=== PATIENT | male | born 1985 | race Caucasian/White ===

== ENCOUNTER 2024-12-19 13:47 | Emergency (ER) | payer BC, SELFPAY ==
[2024-12-19] VITALS (10 sets, daily range): BP systolic 110–127; BP diastolic 77–93; PULSE 55–70; RESP 14–17; TEMP 36.6; O2SAT 98–100
--- NOTE | ~2024-12-19 | CT_ITS ---
CT brain wo con Ordering provider: Ravinder Arteaga History: 39 years Male with . trauma . Comparison: None. Technique: CT of the head without contrast. Radiation reduction technique utilized.The dose-length pr oduct was 605.33 mGy-cm. FINDINGS: BRAIN PARENCHYMA AND CSF SPACES: No midline shift, mass effect or hemorrhage. The brain parenchyma a nd CSF spaces are otherwise normal. VISUALIZED PARANASAL SINUSES: Well aerated. MASTOIDS: Well aerated. BONES: The bones appear intact. SOFT TISSUES: Visualized nasopharynx is normal. Superficial soft tissues are normal. IMPRESSION: No acute intracranial findings. Reviewed, dictated and finalized at location A.
--- NOTE | 2024-12-19 13:58 | ECG_ITS ---
Test Date: 2024-12-19 14:33:17 Measurements Intervals [place] Rate: 60 P: 23 [place]: 176 QRS: 5 QRSD: 102 T: 171 QT: 408 QTc: 409 Interpretive Statements SINUS RHYTHM POSSIBLE RIGHT VENTRICULAR CONDUCTION DELAY [RSR (QR) IN V1/V2] SEPTAL MYOCARDIAL INFARCTION [40+ ms Q WAVE IN V1/V2], OF INDETERMINATE AGE MODERATE T-WAVE ABNORMALITY, CONSIDER LATERAL ISCHEMIA [-0.1+ mV T WAVE IN I/aVL/V5/V6] No previous ECG available for comparison Electronically Signed On 12-20-2024 18:59:38 CDT by Vlad Lyman
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
[2024-12-19 15:25] LABS: Add Urine Microscopic? NO; Appearance Urine Clear (Clear); Bilirubin Urine Negative (Negative); Blood Urine Negative (Negative); Color Urine Yellow (Yellow); Glucose Urine UA Negative (Negative); Ketones Urine Trace mg/dL (Negative); Leukocyte Esterase Ur Negative LEU/UL (Negative); Nitrate Urine Negative (Negative); Protein Urine Negative (Negative); Specific Grav Ur 1.023 (1.001-1.035); Urobilinogen Urine 0.2 mg/dL (<2.0); pH Urine 5.5 (5.0-9.0)
[2024-12-19 15:26] LABS: Basophils Percent Auto 0.6 % (0.2-1.2); Eosinophils Absolute Auto 0.1 K/mm3 (0-0.3); Eosinophils Percent Auto 1.8 % (0-4.4); Hematocrit 39.1 % (42.0-52.0); Hemoglobin 13.3 g/dL (14.0-18.0); Immature Granulocyte Absolute 0.02 K/mm3 (0.00-0.031); Immature Granulocyte Percent A 0.3 % (0-0.5); Lymphocytes Percent Auto 17.9 % (18.3-44.2); Mean Corpuscular Volume 88.1 fl (80-100); Mean Platelet Volume 9.7 fl (7.4-10.4); Monocytes Absolute Auto 0.4 K/mm3 (0.1-0.6); Monocytes Percent Auto 5.8 % (2.6-8.5); Neutrophils Absolute Auto 5.4 K/mm3 (1.3-6.7); Neutrophils Percent Auto 73.6 % (45.5-73.1); Platelet Count Result 185 k/mm3 (150-375); Red Blood Count 4.44 M/mm3 (4.6-6.20); Red Cell Distribution Width 12.6 % (11.5-14.5); White Blood Count 7.3 K/mm3 (4.5-10.0)
--- OUTSIDE RECORDS SUMMARY | 2024-12-19 15:27 | XMS_ITS | Referral Summary ---
Author Organization [facility] Address [address] [place] [address] Care Team Providers Care Intelligence Chief Name Role Phone Denilson Quick Primary Care Provider [phone] Allergies No known active allergies Medications acetaminophen 500 mg capsule Take 2 capsules (1,000 mg total) by mouth every 6 (six) hours as needed for pain 12/10/2023 Active levETIRAcetam (KEPPRA) 500 mg tablet Take 1 tablet (500 mg total) by mouth 2 (two) times a day for 7 days 14 tablet 12/10/2023 Active senna-docusate (PERICOLACE) 8.6-50 mg Take 1 tablet by mouth daily 60 tablet 12/10/2023 Active oxyCODONE (ROXICODONE) 10 mg tabletIndicatio ns:Pain Take 1 tablet (10 mg total) by mouth every 3 (three) hours as needed for pain 28 tablet 12/10/2023 Active Active Problems Problem Noted Date Diagnosed Date Subdural hemorrhage 12/09/2023 Social History Tobacco Use Types Packs/Day Years Used Date Smoking Tobacco: Never Passive Smoke Exposure: Never Smokeless Tobacco: Never Tobacco Cessation:Counseling Given: No Personal Safety Answer Date Recorded Have you ever been in or are you currently in a harmful physical or emotional relationship or is someone making you feel afraid or unsafe? 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 Gender Identity Not on file Sexual Orientation Not on file Last Filed Vital Signs Vital Sign Reading Time Taken Comments Blood Pressure 136/95 12/11/2023 7:58 AM CDT Pulse 56 12/11/2023 4:03 AM CDT Temperature 36.5 C (97.7 F) 12/11/2023 7:58 AM CDT Respiratory Rate 16 12/11/2023 7:58 AM CDT Oxygen Saturation 100% 12/11/2023 7:58 AM CDT Inhaled Oxygen Concentration - - Weight 68 kg (150 lb) 12/09/2023 7:00 PM CDT Height 177.8 cm (5' 10 ) 12/09/2023 7:00 PM CDT Body Mass Index 21.52 12/09/2023 7:00 PM CDT Plan of Treatment Not on file Insurance [employer] GENERIC Advance Directives For more information, please contact: [phone] * Full Code (Latest Code Status on File) Date Activated Date Inactivated Comments 12/09/2023 7:10 PM 12/11/2023 3:54 PM Care Teams Intelligence Chief Relationship Specialty [place] [address] [place] [address] PCP - General Deliverer Food 12/10/24
--- OUTSIDE RECORDS SUMMARY | 2024-12-19 15:27 | XMS_ITS | Clinical Summary ---
Author Organization [facility] Address [address] [place] [address] Care Team Providers Care Reclamation Supervisor Name Role Phone Unavailable Primary Care Provider Unavailabl e Source Comments [facility],non-owned Affiliates and Associated Physician Practices is amultiple site organization consisting of ambulatory clinics and hospital sitesin [place], [place], [place] and [place]. This disclosure is being madepursuant to the Care Everywhere program and may not contain all information available regarding this patient. Last updated 18.[facility] Allergies Active Allergy Reactions Criticality Noted Date Comments Bee Pollen Eye Itching 06/14/2023 Medications * This document contains information received from the source organization and may not represent a complete record from that organization. * Be aware that medications may not be up to date on this document. Alwaysverify current medications with the patient. Multiple Vitamins-Minera ls (MULTIVITAMIN ADULT PO) Take 1 tablet by mouth once daily Active cetirizine (ZYRTEC) 10 MG tablet Take 10 mg by mouth once daily as needed for Allergies Active metFORMIN (Glucophage) 500 MG tablet Take 1 (one) tablet by mouth 2 times daily with morning and evening meal 4 Active Active Problems Problem Noted Date Diagnosed Date Need for vaccination for measles 08/21/2023 Type 2 diabetes mellitus wit hout complication, without long-term current use of insulin 02/06/2023 Reaction to QuantiFERON-TB test 02/06/2023 Subdural hematoma 11/19/2022 Overview (07/12/2024): fall Need for vaccination against hepatitis A 022 High cholesterol 08/21/2019 Annual physical exam- [facility] Departdc nt 07/17/2018 Exposure to environmental toxic substances 08/21 Overview (09/16/2019): [employer] Seasonal allergies Family history of diabetes mellitus Resolved Problems Problem Noted Date Diagnosed Date Resolved Date Chest pain 10/26/2020 01/29/2021 Elevated troponin 10/26/2020 06/14/2023 Family history of type 2 diabetes mellitus 02/05/2009 01/29/2021 Immunizations Immunization Administration Dates Next Due [address] [employer] primary monoval ent 12+ yr 0.3mL Purple cap 10/03/2020,09/12/2020 HEP A VACCINE, ADULT 04/01/2022,01/29/2021 INFLUENZA VACCINE, QUADR. (F LUZONE; FLULAVAL; FLUARIX; AFLURIA QUADRIVALENT; 6MO+), 0.5 ML (IIV4) 08/18/2022,07/03/2019,06/21/2018,2015 MMR 07/12/2024 TDAP (7yrs+) 07/12/2024 Family History Medical History Relation Name Comments CAD (Coronary Artery Disease) Father Diabetes - Type 2 Father borderline CVA Mother hemorrhagic Diabetes Mother type 2 Heart Failure Mother CHF - heart tr ansplant Diabetes Sister 1 type 1 Multiple Sclerosis Sister 1 Other Sister 1 brain bleed Diabetes Sister 2 type 2 Relation Name Status Comments Father Alive Mother Sister 1 Alive Sister 2 Alive Social History Tobacco Use Types Packs/Day Years Used Date Smoking Tobacco: Never Cigars Smokeless Tobacco: Never Tobacco Cessation:Counseling Given: Yes Alcohol Use Standard Drinks/Week Comments Yes 0.8 (1 standard drink = 0.6 oz p ure alcohol) 1 x week PHQ-2 Answer Date Recorded Patient Health Questionnaire-2 Score 0 07/05/2024 Sex and Gender Information Value Date Recorded Sex Assigned at Not on file 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 Gender Identity Not on file Sexual Orientation Not on file 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 Last Filed Vital Signs Vital Sign Reading Time Taken Comments Blood Pressure 124/76 07/12/2024 9:00 AM SQUARING MACHINE OPERATOR Pulse 63 07/12/2024 9:00 AM SQUARING MACHINE OPERATOR Temperature 36.3 C (97.4 F) 10/27/2020 12:36 PM SQUARING MACHINE OPERATOR Respiratory Rate 14 07/12/2024 9:0 0 AM SQUARING MACHINE OPERATOR Oxygen Saturation 99% 07/12/2024 9:00 AM SQUARING MACHINE OPERATOR Inhaled Oxygen Concentration - - Weight 61.1 kg (134 lb 12.8 oz) 07/12/2024 9:00 AM SQUARING MACHINE OPERATOR Height 174 cm (5' 8.5 ) 07/12/2024 9:00 AM SQUARING MACHINE OPERATOR Body Mass Index 20.2 07/12/2024 9:00 AM SQUARING MACHINE OPERATOR Plan of Treatment Health Maintenance Due Date Last Done Comments HEPATITIS C SCREENING 06/07/2002 HEPATITIS B VACCINE (1 of 3 - 19+ 3-dose series) 2003 PNEUMOCOCCAL VACCINE (1 of 2 - PCV) 2003 DIABETES RETINOPATHY SCREENING 02/06/2023 DIABETES-FOOT EXAM WITH MONOFILAMENT 02/06/2023 COVID-19 VACCINE ( - season) 2024 10/03/2020, 09/12/2020 DIABETES-STATIN 2024 DEPRESSION SCREENING 08/21/2024 07/12/2024, 06/14/20 DIABETES - URINE PROTEIN SCREENING 08/21/2024 DIABETES-HGB A1C 12/13/2024 06/14/2024, , 06/14/2023, Additional history exists INFLUENZA VACCINE (Season Ended) 2025 07/10/2023, 08/18/2022, 07/03/2019, Additional history exists DIABETES-SERUM CREATININE 06/14/20252023, 12/09/2023, 12/09/2023, Additional history exists ZOSTER VACCINE (1 of 2) 2034 DTAP/TDAP/TD VACCINES (2 - Td or Tdap) 07/12/2034 07/12/2024 HIV SCREENING Completed 02/05/2009 HEPATITIS A VACCINE Completed 04/01/2022, HIB VACCINE Aged Out No longer eligi ble based on patient's age to complete this topic HPV VACCINE Aged Out No longer eligi ble based on patient's age to complete this topic MENINGOCOCCAL (Group B) VACCINE SHARED DECISION-MAKING Aged Out No longer eligible based on patient's age to complete this topic MENINGOCOCCAL GROUPS A/C/Y/W VACCINE Aged Out No longer eligible based on patient's age to complete this topic Procedures Procedure Name Priority Date/Time Associated Diagnosis Comments COMPREHENSIVE METABOLIC PANEL Routine 06/14/2024 7:05 AM CDT Annual physical exam- [facility] HEMOGLOBIN A1C Routine 06/14/2024 7:05 AM CDT HIV 1/0/2 ANTIBODIES W CONFIRM Routine 02/05/2009 11:00 AM CDT Annual Physical Exam Screening for HIV (Human Immunodeficiency Virus) from Last 3 Months or Most Recently Relevant to Health Maintenance Results * (ABNORMAL) HEMOGLOBIN A1C (06/14/2024 7:05 AM CDT) Hemoglobin A1c 6.9(H) 4.8 - 5.6 % [facility] ACCOUNT BILL Comment: Prediabetes: 5.7 - 6.4 Diabetes: >6.4 Glycemic control for adults with diabetes: <7.0 06/14/2024 7:05 AM CDT 06/14/2024 Narrative [facility] ACCOUNT BILL - 06/15/2024 9:11 AM CDT Performed at: - Lab[address] [id number] Sample Selector: Kang Molina PhD, Phone: [phone] us Laurie Dangelo MD LAB - CHEMISTRY ORDERABLES Pretty maldonado Result [facility] ACCOUNT BILL [address] [place] [address] * (ABNORMAL) COMPREHENSIVE METABOLIC PANEL (06/14/2024 7:05 AM CDT) Glucose 122(H) 70 - 99 mg/dL [facility] ACCOUNT BILL BUN 22 6 - 24 mg/dL [facility] ACCOUNT BILL Creatinine 0.91 0.76 - 1.27 mg/dL [facility] ACCOUNT BILL eGFR by CKD-EPI 109 >59 mL/min/1.7 3 [facility] ACCOUNT BILL BUN/Creatinine Ratio 24(H) 9 - 20 [facility] ACCOUNT BILL Sodium 140 134 - 144 mmol/L [facility] ACCOUNT BILL Potassium 4.6 3.5 - 5.2 mmol/L [facility] ACCOUNT BILL Chloride 103 96 - 106 mmol/L [facility] ACCOUNT BILL CO2 25 20 - 29 mmol/L [facility] ACCOUNT BILL Calcium 9.1 8.7 - 10.2 mg/dL [facility] ACCOUNT BILL Protein Total 6.9 6.0 - 8.5 g/dL [facility] ACCOUNT BILL Albumin 4.4 4.1 - 5.1 g/dL [facility] ACCOUNT BILL Globulin Total 2.5 1.5 - 4.5 g/dL [facility] ACCOUNT BILL Bilirubin Total 0.2 0.0 - 1.2 mg/dL [facility] ACCOUNT BILL Alkaline Phosphatase 83 44 - 121 IU/L [facility] ACCOUNT BILL AST 23 0 - 40 IU/L [facility] ACCOUNT BILL ALT 22 0 - 44 IU/L [facility] ACCOUNT BILL Blood BLOOD SPECIMEN / Unknown 06/14/2024 7:05 AM CDT 06/14/2024 Narrative [facility] ACCOUNT BILL - 06/15/2024 9:11 AM CDT Performed at: [address] [id number] Sample Selector: Kang Molina PhD, Phone: [phone] us Laurie Dangelo MD LAB - CHEMISTRY ORDERABLES Pretty maldonado Result [facility] ACCOUNT BILL [address] [place] [address] * HIV 1/0/2 ANTIBODIES W CONFIRM (PO REF LAB) (02/05/2009 11:00 AM CDT) HIV-1 Antibody O.D. Ratio <1.00 <1.00 [facility] ACCOUNT BILL Comment:Index Value: Specime n reactivity relative to the negative cutoff. HIV-1/HIV-2 Non Reactive Non Reactive [facility] ACCOUNT BILL BLOOD SPECIMEN / Unknown 02/05/2009 11:00 AM CDT 02/05/2009 6:03 PM CDT Narrative Resulting Agency Comment [facility] [address] [facility] [phone] us Tiffany Skinner MD LAB - MICROBIOLOGY ORDERABLES F inal Result [facility] ACCOUNT BILL [address] [place] [address] from Last 3 Months or Most Recently Relevant to Health Maintenance Insurance [facility] [place], [place] [address] PA[facility]OR GENERIC CCMSI Advance Directives * Full Code (Latest Code Status on File) Date Activated Date Inactivated Comments 10/26/2020 8:42 PM 10/27/2020 6:00 PM * FULL RESUSCITATION Date Activated Date Inactivated Comments 07/19/2013 2:33 AM 07/21/2013 3:19 PM
--- OUTSIDE RECORDS SUMMARY | 2024-12-19 15:27 | XMS_ITS | Clinical Summary ---
Author Organization [facility] Address [facility] [place] [address] Care Team Providers Care Salesperson Flying Squad Name Role Phone Denilson Quick Primary Care Provider [phone] Allergies Active Allergy Reactions Criticality Noted Date Comments Bee Pollen Eyes Water & Itch 06/14/2023 Medications multi vitamin/minerals (VITAMINS/MINERA LS) tablet Take 1 tablet by mouth daily. Active cetirizine 10 MG tablet Take 1 tablet (10 mg total) by mouth daily. Active Glucose Blood (BLOOD GLUCOSE TEST STRIPS) StripIndications :Type 2 diabetes mellitus without complication, without long-term current use of insulin ([facility]/HCC HHS/HCC) 1 each by Does not apply route 4 (four) times daily as needed. 100 strip 3 07/10/2023 Active Blood Glucose Monitoring Suppl (ONE TOUCH ULTRA 2) w/Device KitIndications:T ype 2 diabetes mellitus without complication, without long-term current use of insulin (CMS/HCC HHS/HCC) 1 Device by Does not apply route 4 (four) times daily as needed. 1 kit 07/10/2023 Active Lancets MiscIndications: Type 2 diabetes mellitus without complication, without long-term current use of insulin (CMS/HCC HHS/HCC) 1 each by Does not apply route 4 (four) times daily as needed. 100 each 3 07/10/2023 Active metFORMIN (GLUCOPHAGE) 500 MG tabletIndication s:Type 2 diabetes mellitus without complication, without long-term current use of insulin (CMS/HCC HHS/HCC) Take 1 tablet (500 mg total) by mouth 2 (two) times daily with meals. 60 tablet 11 05/09/2024 Active Active Problems Problem Noted Date Diagnosed Date Traumatic brain injury 12/27/2023 Family history of diabetes mellitus 10/03/2023 Type 2 diabetes mellitus wit hout complication, without long-term current use of insulin ([facility]) 02/06/2023 Reaction to QuantiFERON-TB test 02/06/2023 Seasonal allergies 03/20/2019 Family history of type 2 diabetes mellitus 02/05 Resolved Problems Problem Noted Date Diagnosed Date Resolved Date Pain at surgical incision 07/03/2019 Assessment & Plan (07/03/2019 8:09 AM JET INSPECTOR): Will get US to look for incisional hernia. Ok to con't with work in meantime Rib pain on right side 06/25/201907/10 Assessment & Plan (06/25/2019 1:02 PM JET INSPECTOR): Will get X rays of ribs. Con't ibuprofen PRN. Note given to go back to work after reeval in 1 week Gastroesophageal reflux dise ase, esophagitis presence not specified 06/25/2019 07/10/2023 Assessment & Plan (06/25/2019 1:03 PM JET INSPECTOR): Some of his pain consistent with acid reflux. Will try PPI to see if helps mariana with NSAID SOB (shortness of breath) 03/20/2019 Assessment & Plan (03/20/2019 2:42 PM CDT): Had treadmill test and could do significant mets w/o ECG changes. Will get PFTs to evaluate SOB and chest tightness Encounters Date Type Department Care Team Description 10/09/2024 10:00 AM JET INSPECTOR Office Visit [facility] Family & Internal Medicine [address] [address] Denilson Quick PA Follow Up (3 month follow up); Diabetes 10/09/2024 Travel from Last 3 Months Immunizations Immunization Administration Dates Next Due Fluzone 6 Months+ Quad (0.5 mL Prefilled Syringe) 07/10/2023 Hepatitis A (Havrix [address]) 04/01/2022,2020 Influenza (Generic) 06/26/2024 Influenza Adult (Generic) 08/18/2022,,06/21/2018,2015 MMR (MMRII) 07/12/2024 Tdap (Adacel) 07/10/2023 Tdap (Generic) 07/12/2024 Family History Medical History Relation Comments Cancer Father prostate Depression Father Diabetes Mother Heart Disease Mother Diabetes Sister Relation Status Comments Father Mother Sister Social History Tobacco Use Types Packs/Day Years Used Date Smoking Tobacco: Never Smokeless Tobacco: Never Tobacco Cessation:Counseling Given: No Alcohol Use Standard Drinks/Week Comments Yes 1 (1 standard drink = 0.6 oz pur e alcohol) social PHQ-2 Answer Date Recorded Patient Health Questionnaire-2 Score 0 10/09/2024 [facility] - Occupational Stress Questionnaire Answer Date Recorded Feeling of Stress Only a little 03/20/2019 Sex and Gender Information Value Date Recorded Sex Assigned at Not on file Legal Sex Male 7:32 AM CDT Gender Identity Not on file Sexual Orientation Not on file 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 Not on file Not on file Last Filed Vital Signs Vital Sign Reading Time Taken Comments Blood Pressure 137/86 10/09/2024 10:07 AM JET INSPECTOR Pulse 72 10/09/2024 10:07 AM JET INSPECTOR Temperature 36.7 C (98.1 F) 10/09/2024 10:07 AM JET INSPECTOR Respiratory Rate 16 10/09/2024 10:07 AM JET INSPECTOR Oxygen Saturation 99% 10/09/2024 10:07 AM JET INSPECTOR Inhaled Oxygen Concentration - - Weight 63.5 kg (140 lb) 10/09/2024 10:07 AM JET INSPECTOR Height 175.3 cm (5' 9 ) 10/09/2024 10:07 AM JET INSPECTOR Body Mass Index 20.67 10/09/2024 10:07 AM JET INSPECTOR Plan of Treatment Upcoming Encounters Date Type Department Care Team (Late st Contact Info) Description 01/06/2025 9:00 AM CDT Office Visit [facility] Family & Internal Medicine [address] [address] [place] [address] [place] [address] Health Maintenance Due Date Last Done Comments Kidney Health Evaluation 1984 Diabetes: Retinopathy Eye Exam 2002 Hepatitis B Vaccines (1 of 3 - 19+ 3-dose series) 2003 Pneumococcal Vaccine: Pediatrics (0 to 5 Years) and At-Risk Patients (6 to 49 Years) (1 of 2 - PCV) 2003 COVID-19 Vaccine (3 - 2023- season) 2024 10/03/2020, 09/12/2020 Annual Physical 07/10/2024 07/10/2023 Hemoglobin A1C 04/08/2025 10/09/2024, 05/22, 10/03/2023, Additional history exists Lipid Panel 06/14/2025 06/14/2024, 03/0 04/2021, 08/20/2019 DTaP, Tdap and Td Vaccines (3 - Td or Tdap) 07/12/2034 07/12/2024, 07/10/2023 Hepatitis C 07/10/2053 Postponed from 2002 (Patient Refused) PHQ-2 (Physician Rincon) Completed 10/09/2024 HPV Vaccines Aged Out No longer eligi ble based on patient's age to complete this topic Meningococcal B Vaccine Aged Out No l onger eligible based on patient's age to complete this topic Meningococcal Vaccine Aged Out No jhonathan jay eligible based on patient's age to complete this topic RSV Immunizations Under 20 Months Aged Out No longer eligible based on patient's age to complete this topic Procedures Procedure Name Priority Date/Time Associated Diagnosis Comments COLLECT.CAPILLARY (FNGR,HEEL,EAR) Routine 10/09/2024 10:08 AM JET INSPECTOR Type 2 diabetes mellitus without complication, without long-term current use of insulin ([facility]) HEMOGLOBIN, GLYCOSYLATED Routine 10/09/2024 Type 2 diabetes mellitus without complication, without long-term current use of insulin ([facility]) from Last 3 Months Results * A1C (BACK OFFICE) (10/09/2024) HGB A1C 6.7 % [id number] T HORTENCIAOMAR PANDYA 10/09/2024 [facility] Final Result Performing Organization Address City/State/[facility] Co de Phone Number [phone] [place] [address], [place] [phone] from Last 3 Months Insurance [employer] [address] [place], [place] [id number] [place] [address] Care Teams Salesperson Flying Squad Relationship Specialty [place] [address] [place] [address] PCP - General Physician Jigger Operator Medical 10/03/23
--- OUTSIDE RECORDS SUMMARY | 2024-12-19 15:27 | XMS_ITS | Encounter Summary ---
Author Organization [facility] Address [address] [place] [address] Care Team Providers Care Hand Bindery Assembly Worker Name Role Phone Amelia Bai MD Primary Care Provider [phone] Amelia Bai MD Primary Care Provider [phone] Kiarra Guidry MD Primary Care Provider Encounter Details Date Type Department Care Team (Late st Contact Info) Description 11/30/2015 Lab Requisition [facility] [address] [place] [address] Unknown, Provider Social History Tobacco Use Types Packs/Day Years Used Date Smoking Tobacco: Never Cigars Comments:every once in awhil e Alcohol Use Standard Drinks/Week Comments Yes 0.8 (1 standard drink = 0.6 oz p ure alcohol) 1 x week Sex and Gender Information Value Date Recorded Sex Assigned at Not on file Legal Sex Male 6:11 AM EMG TECHNICIAN Gender Identity Not on file Sexual Orientation Not on file 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 as of this encounter Plan of Treatment Not on file documented as of this encounter Procedures Procedure Name Priority Date/Time Associated Diagnosis Comments RUBEOLA ANTIBODY IGG Routine 11/30/2015 9:45 AM CDT MUMPS ANTIBODY IGG Routine 11/30/2015 9: 45 AM CDT VARICELLA ZOSTER ANTIBODY IGG Routine 11/30/2015 9:45 AM CDT RUBELLA ANTIBODY IGG Routine 11/30/2015 9:45 AM CDT HEPATITIS B SURFACE ANTIBODY Routine 11/30/2015 9:45 AM CDT documented in this encounter Results * VARICELLA ZOSTER ANTIBODY IGG (11/30/2015 9:45 AM CDT) Varicella zoster Virus Antibody IgG 790 Immune >165 index 12/02/2015 12:15 PM CDT [facility] ([facility]) Comment: Negative <135 Equivocal 135 - 165 Positive >165 A positive result generally indicates exposure to the pathogen or administration of specific immunoglobulins, but it is not indication of active infection or stage of disease. Blood specimen (specimen) BLOOD SPECIMEN / Unknown Venipuncture / Unknown 11/30/2015 9:45 AM CDT 11/30/2015 7:36 PM CDT Narrative [facility] ([facility]) - 12/02/2015 12:15 PM CDT Performed at: - [facility] [address] [place] [address] [id number] Underwater Welder: Kang Molina PhD, Phone: [phone] us Provider Unknown LAB - CHEMISTRY ORDERABLES Pretty l Result [facility] ([facility]) [address] [place] [address] * (ABNORMAL) RUBEOLA ANTIBODY IGG (11/30/2015 9:45 AM CDT) Pathologist [facility] Measles (Rubeola) Antibody IgG <25.0(L) Immune >29.9 AU/mL 12/02/2015 12:15 PM CDT [facility] ([facility]) Comment: Negative <25.0 Equivocal 25.0 - 29.9 Positive >29.9 Presence of antibodies to Rubeola is presumptive evidence of immunity except when acute infection is suspected. Blood specimen (specimen) BLOOD SPECIMEN / Unknown Venipuncture / Unknown 11/30/2015 9:45 AM CDT 11/30/2015 7:36 PM CDT [facility] - 12/02/2015 12:15 PM CDT Performed at: [address] [place] [address] [id number] Underwater Welder: Kang Molina PhD, Phone: [phone] Provider Unknown LAB - CHEMISTRY ORDERABLES Pretty l Result Performing Organization Address [facility] Co de Phone Number [facility] ([facility]) [address] [place] [address] * MUMPS ANTIBODY IGG (11/30/2015 9:45 AM CDT) Mumps Virus Antibody IgG Index 20.5 Immune >10.9 AU/mL 12/02/2015 12:15 PM [facility] Comment: Negative <9.0 Equivocal 9.0 - 10.9 Positive >10.9 A positive result generally indicates past exposure to Mumps virus or previous vaccination. Blood specimen (specimen) BLOOD SPECIMEN / Unknown Venipuncture / Unknown 11/30/2015 9:45 AM CDT 11/30/2015 7:36 PM CDT [facility]ative [facility] - 12/02/2015 12:15 PM CDT Performed at: [address] [place] [id number] Underwater Welder: Kang Molina PhD, Phone: [phone] Provider Unknown LAB - CHEMISTRY ORDERABLES Pretty l Result Performing Organization Address [facility] Co de Phone Number [facility]) [address] [place] [address] * RUBELLA ANTIBODY IGG (11/30/2015 9:45 AM CDT) Rubella Antibody IgG Positive - Immune 11/30/2015 8:33 PM CDT [facility] Blood BLOOD SPECIMEN / Unknown Venipuncture / Unknown 11/30/2015 9:45 AM CDT 11/30/2015 7:36 PM CDT us Provider Unknown LAB - SEROLOGY ORDERABLES Final Result Performing Organization Address City/[facility]/ZIP Co de Phone Number [facility] [address] [place] [address] * (ABNORMAL) HEPATITIS B SURFACE ANTIBODY (11/30/2015 9:45 AM CDT) HBsAb REACTIVE(A ) Non Reactive 11/30/2015 8:23 PM CDT [facility] Blood BLOOD SPECIMEN / Unknown Venipuncture / Unknown 11/30/2015 9:45 AM CDT 11/30/2015 7:36 PM CDT Provider Unknown LAB - CHEMISTRY ORDERABLES Pretty l Result Performing Organization Address [facility] Co de Phone Number [facility] [address] [place] [address] documented in this encounter Visit Diagnoses Not on filedocumented in this encounter Additional Health Concerns Infection Onset Date Last Indicated Resolved Time COVID-19 Under Investigation 05/19/2020 05/19/2020 05/20/2020 2:39 PM CDT COVID-19 Under Investigation 07/15/2020 07/15/2020 07/16/2020 8:29 AM EMG TECHNICIAN COVID-19 Confirmed 07/15/2020 07/15/2020 0 4:34 AM EMG TECHNICIAN documented as of this encounter Care Teams Hand Bindery Assembly Worker Relationship Specialty Start Date End Date Amelia Bai MD PCP - General Internal Medicine 09/16/19 01/28/21 [place] [address] [place] [address] PCP - General 03/05/21 03/01/22 Kiarra Guidry MD [address] [facility] [address] [id number] PCP - General 10/12/23 07/11/24 documented as of this encounter
--- OUTSIDE RECORDS SUMMARY | 2024-12-19 15:27 | XMS_ITS | Clinical Summary ---
Author Organization [facility] Address [address] [place] [address] Care Team Providers Care Dispute Resolution Specialist Name Role Phone Denilson Quick Primary Care Provider [phone] Allergies No known active allergies Medications acetaminophen [...] on file Legal Sex Male 3:06 AM VENDING MACHINE FILLER Gender Identity Not on file Sexual Orientation Not on file Obstetrics History Last Filed Vital Signs Vital Sign Reading [...] 12/09/2023 7:00 PM CDT Plan of Treatment Health Maintenance Due Date Last Done Comments Depression Screening 1984 Hepatitis C Screening 1984 Varicella Vaccines (1 of 2 - 13+ 2-dose series) 1997 Hepatitis B Screening 2002 Regular Well Visit/Exam 18-64 2002 Covid-19 Vaccine ( - 2023- season) 2024 10/03/2020, 09/12/2020 DTaP/Tdap/Td Vaccine (3 - Td or Tdap) 07/12/2034 07/12/2024, 07/10/2023 Influenza Vaccine Completed 06/26/2024, , 08/18/2022, Additional history exists HPV Vaccines Aged Out No longer eligi ble based on patient's age to complete this topic Pneumococcal vaccine <65 Aged Out No longer eligible based on patient's age to complete this topic Insurance [employer] COMPENSATION GENERIC Advance Directives For more information, please contact: [phone] * Full Code (Latest Code Status on File) Date Activated Date Inactivated Comments 12/09/2023 7:10 PM 12/11/2023 3:54 PM Care Teams Dispute Resolution Specialist Relationship Specialty [place] [address] [place] [address] PCP - General Corrections Caseworker 12/10/24
--- OUTSIDE RECORDS SUMMARY | 2024-12-19 15:27 | XMS_ITS | Encounter Summary ---
Author Organization [facility] Address [address] [place] [address] Care Team Providers Care Senior Operations Manager Name Role Phone Amelia Bai MD Primary Care Provider [phone] Amelia Bai MD Primary Care Provider [phone] Kiarra Guidry MD Primary Care Provider Encounter Details Date Type Department Care Team (Late st Contact Info) Description 05/19/2020 Lab Requisition [facility] [address] [place] [address] Social History Tobacco Use Types Packs/Day Years Used Date Smoking Tobacco: Never Cigars Smokeless Tobacco: Never Alcohol Use Standard Drinks/Week Comments Yes 0.8 (1 standard drink = 0.6 oz p ure alcohol) 1 x week Sex and Gender Information Value Date Recorded Sex Assigned at Not on file Legal Sex Male 6:11 AM BLADE ALIGNER Gender Identity Not on file Sexual Orientation Not on file 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 as of this encounter Plan of Treatment Not on file documented as of this encounter Procedures Procedure Name Priority Date/Time Associated Diagnosis Comments SARS-COV-2 (COVID-19) IN HOUSE Routine 05/19/2020 8:11 AM CDT documented in this encounter Results * SARS-COV-2 (COVID-19) IN HOUSE (05/19/2020 8:11 AM CDT) COVID-19 PCR Not detected Not detected, Invalid 05/20/2020 2:39 PM CDT [facility] Microbiology SPECIMEN FROM NASOPHARYNGEAL STRUCTURE / Unknown Collection / Unknown 05/19/2020 8:11 AM CDT 05/19/2020 12:31 PM CDT Narrative [facility] - 05/20/2020 2:39 PM CDT This Real Time RT-PCR assay was developed and its performance characteristics determined by [facility]. This test has been authorized by the Food and Drug administration (FDA)under an Emergency Use Authorization (EUA). This test has been validated in accordance with the FDA's guidance document Policy for Diagnostic Testing in Laboratories Certified to perform High Complexity Testing under CLIA prior to Emergency Use Authorization for Coronavirus Disease-2019 during the Public Health Emergency issued on October 19, 2019. FDA independent review of this validation is pending. This test is only authorized for the duration of time the declaration that circumstances exist justifying the authorization of emergency use of in vitro diagnostic tests for detection of SARS-CoV-2 virus and/or diagnosis of COVID-19 infection under section 564(b)(1) of the Act, 21 U.S.C 360bbb-3 (b)(1), unless the authorization is terminated or revoked sooner. us LAB - MICROBIOLOGY ORDERABLES Fi nal Result [facility] [address] [place] [address], [facility] [phone] documented in this encounter Visit Diagnoses Not on filedocumented in this encounter Additional Health Concerns Infection Onset Date Last Indicated Resolved Time COVID-19 Under Investigation 05/19/2020 05/19/2020 05/20/2020 2:39 PM CDT COVID-19 Under Investigation 07/15/2020 07/15/2020 07/16/2020 8:29 AM BLADE ALIGNER COVID-19 Confirmed 07/15/2020 07/15/2020 0 4:34 AM BLADE ALIGNER documented as of this encounter Care Teams Senior Operations Manager Relationship Specialty Start Date End Date Amelia Bai MD PCP - General Internal Medicine 09/16/19 01/28/21 [place] [address] [place] [address] PCP - General 03/05/21 03/01/22 Kiarra Guidry MD [address] [place] [address] [address] [address] PCP - General 10/12/23 07/11/24 documented as of this encounter
--- OUTSIDE RECORDS SUMMARY | 2024-12-19 15:27 | XMS_ITS | Encounter Summary ---
Author Organization [facility] Address [address] [place] [address] Care Team Providers Care Project Program Manager Name Role Phone Amelia Bai MD Primary Care Provider [phone] Amelia Bai MD Primary Care Provider [phone] Kiarra Guidry MD Primary Care Provider Encounter Details Date Type Department Care Team (Late st Contact Info) Description 07/15/2020 Lab Requisition [facility] [address] [place] [address] Social History Tobacco Use Types Packs/Day Years Used Date Smoking Tobacco: Never Cigars Smokeless Tobacco: Never Alcohol Use Standard Drinks/Week Comments Yes 0.8 (1 standard drink = 0.6 oz p ure alcohol) 1 x week Sex and Gender Information Value Date Recorded Sex Assigned at Not on file Legal Sex Male 6:11 AM PSYCHIATRIC SECRETARY Gender Identity Not on file Sexual Orientation Not on file 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 as of this encounter Plan of Treatment Not on file documented as of this encounter Procedures Procedure Name Priority Date/Time Associated Diagnosis Comments SARS-COV-2 (COVID-19) IN HOUSE Routine 07/15/2020 1:05 PM PSYCHIATRIC SECRETARY documented in this encounter Results * (ABNORMAL) SARS-COV-2 (COVID-19) IN HOUSE (07/15/2020 1:05 PM PSYCHIATRIC SECRETARY) COVID-19 PCR Detected( AA) Not detected 07/16/2020 8:29 AM PSYCHIATRIC SECRETARY [facility] Microbiology SPECIMEN FROM NASOPHARYNGEAL STRUCTURE / Unknown Collection / Unknown 07/15/2020 1:05 PM PSYCHIATRIC SECRETARY 07/15/2020 5:27 PM PSYCHIATRIC SECRETARY Narrative [facility] - 07/16/2020 8:29 AM PSYCHIATRIC SECRETARY This nucleic acid amplification assay performance was validated by [facility]. This test has been authorized [...] the authorization is terminated or revoked sooner. Fact Sheets for this EUA assay are available upon request. us LAB - MICROBIOLOGY ORDERABLES Fi nal Result [facility] [address] [place] [address], [facility] [phone] documented in this encounter Visit Diagnoses Not on filedocumented in this encounter Additional Health Concerns Infection Onset Date Last Indicated Resolved Time COVID-19 Under Investigation 07/15/2020 07/15/2020 07/16/2020 8:29 AM PSYCHIATRIC SECRETARY COVID-19 Confirmed 07/15/2020 07/15/2020 0 4:34 AM PSYCHIATRIC SECRETARY documented as of this encounter Care Teams Project Program Manager Relationship Specialty Start Date End Date Amelia Bai MD PCP - General Internal Medicine 09/16/19 01/28/21 [place] [address] [place] [address] PCP - General 03/05/21 03/01/22 Kiarra Guidry MD [address] [place] [address] [address] [place] [id number] PCP - General 10/12/23 07/11/24 documented as of this encounter
[2024-12-19 15:35] LABS: Alanine Aminotransferase 34 U/L (6-50); Albumin Level 4.2 g/dL (3.5-5.1); Alkaline Phosphatase 76 U/L (38-126); Anion Gap 8 mmol/L (4-12); Aspartate Amino Transferase 33 U/L (17-59); Bilirubin,Total 0.6 mg/dL (0.2-1.3); Blood Urea Nitrogen 21 mg/dL (9-20); Calcium 9.2 mg/dL (8.4-10.2); Carbon Dioxide 25 mmol/L (22-30); Chloride 104 mmol/L (98-107); Estimated CRCL calculation 94 ml/min; Estimated Glomerular Filt Rate > 60; Glucose 112 mg/dL (65-110); Magnesium 1.9 mg/dL (1.6-2.3); Potassium 3.8 mmol/L (3.4-5.0); Sodium 137 mmol/L (137-145)
[2024-12-19 15:39] LABS: INR 1.1; Prothrombin Time 14.1 Seconds (11.1-14.7)
[2024-12-19 15:40] LABS: Partial Thromboplastin Time 25.3 Seconds (22.3-36.8)
[2024-12-19] MEDS: LACTATED RINGERS 1,000 ML 999 ML IV CONT ×2 (15:54→15:57)
[2024-12-19] MEDS: ACETAMINOPHEN 500 MG TABLET 1000 MG PO (17:00)
== END 2024-12-19 17:45 | disposition home or self-care (01) ==
PROVIDERS: Emergency Provider Emergency Medicine
DX: R55 Syncope and collapse (principal); S09.90XA Unspecified injury of head, initial encounter; Z87.820 Personal history of traumatic brain injury; R94.31 Abnormal electrocardiogram [ECG] [EKG]; W18.39XA Other fall on same level, initial encounter
CPT/HCPCS: 36415; 70450; 80053; 81003; 83735; 84443; 85025; 85610; 85730; 93005; 96360; 99284; A9270; J7120